=== PATIENT | female | born 1940 | race African-American/Black ===

== ENCOUNTER 2020-11-22 06:29 | Inpatient (IN) | payer MEDICARE, OTHER ==
[2020-11-22] VITALS (9 sets, daily range): BP systolic 91–133; BP diastolic 49–65
[~2020-11-22] VITALS: Ht 157.5 cm; Wt 64.6 kg
[~2020-11-22 06:29] MED LIST: LOSA100T33 PO; MELO1TAB56 PO; TRAM50TA2 PO
[2020-11-22] MEDS ORDERED: TRANEXAMIC ACID 20 ML ONE (07:06)
[2020-11-22] MEDS ORDERED: BUPIVACAINE 0.25% INJ 50ML VIAL ONE (07:07)
[2020-11-22] MEDS ORDERED: TETRACAINE 1% INJ 2 ML VIAL IJ ONE (07:07)
[2020-11-22] MEDS ORDERED: KETOROLAC TROMETH 30 MG/ML 1ML VIAL ONE (07:09)
[2020-11-22] MEDS ORDERED: MORPHINE SULF(PF) 0.5MG/ML 10ML VIAL ONE (07:09)
[2020-11-22] MEDS ORDERED: VANCOMYCIN HCL 1000 MG VL ONE ×2 (07:13→07:15)
[2020-11-22] MEDS ORDERED: PROPOFOL 10 MG/ML 20 ML IV ONE (07:14)
[2020-11-22] MEDS ORDERED: ONDANSETRON HCL 4 MG/2 ML VIAL ONE (07:14)
[2020-11-22] MEDS ORDERED: fentaNYL CITRATE 100 MCG/2 ML VL ONE (07:14)
[2020-11-22] MEDS ORDERED: MIDAZOLAM HCL 1MG/1ML-2 ML VIAL ONE (07:14)
[2020-11-22] MEDS ORDERED: GLYCOPYRROLATE 0.2 MG/ML 1ML VIAL ONE (07:14)
[2020-11-22] MEDS ORDERED: LIDOCAINE 2% (LOCAL ANESTH.) PF 5ml SDV ONE (07:14)
[2020-11-22] MEDS ORDERED: ePHEDrine SULFATE 50 MG/ML AMP ONE (07:14)
[2020-11-22] MEDS ORDERED: ACETAMINOPHEN IV 100 ML IV ONE (07:15)
[2020-11-22] MEDS ORDERED: PREGABALIN CAPSULE 75 MG CAP ONE (07:16)
[2020-11-22] MEDS ORDERED: CELECOXIB 100 MG CAP ONE (07:16)
[2020-11-22] MEDS ORDERED: GENTAMICIN SULF 80 MG/2 ML VIAL ONE (07:17)
[2020-11-22] MEDS ORDERED: BUPIVACAINE 0.5% P/F INJ 10 ML VIAL ONE (07:17)
[2020-11-22] MEDS ORDERED: KETAMINE HCL 10 ML ONE (08:03)
[2020-11-22] MEDS ORDERED: VANCOMYCIN 1GM/250ML 250 ML IV ONE (09:00)
[2020-11-22] MEDS ORDERED: CELECOXIB 100 MG CAP PO ONE (09:00)
[2020-11-22] MEDS ORDERED: PREGABALIN CAPSULE 75 MG CAP PO ONE (09:00)
[2020-11-22] MEDS ORDERED: ACETAMINOPHEN IV 1000 MG/100ML (10MG/ML) IV ONE (09:00)
[2020-11-22] MEDS ORDERED: DexAMETHasone SOD PHOS 10MG/1ML VIAL INJ IV PRN (09:15)
[2020-11-22] MEDS ORDERED: NALBUPHINE HCL 10 MG/1ml INJECTION SUBCUT ONE (09:15)
[2020-11-22] MEDS ORDERED: MORPHINE SULF INJ 2 MG/ML SYRINGE 1ML IV PRN (09:15)
[2020-11-22] MEDS ORDERED: traMADol HCL 50 MG TAB PO PRN (09:15)
[2020-11-22] MEDS ORDERED: NITROGLYCERIN 0.4 MG SL TAB SL PRN (09:15)
[2020-11-22] MEDS ORDERED: NALOXONE HCL 0.4 MG/ML VIAL IV PRN (09:15)
[2020-11-22] MEDS ORDERED: BISACODYL 5 MG EC TAB PO PRN (09:15)
[2020-11-22] MEDS: LACTATED RINGER'S 1,000 ML IV SCH ×2 (09:15→21:55)
[2020-11-22] MEDS ORDERED: ACETAMINOPHEN 325 MG TAB PO PRN (09:15)
[2020-11-22] MEDS ORDERED: ONDANSETRON HCL 4 MG/2 ML VIAL IV PRN ×3 (09:15)
[2020-11-22] MEDS: DOCUSATE SOD 100 MG CAP PO SCH ×2 (10:00→21:56)
[2020-11-22] MEDS: ENOXAPARIN SOD 40 MG/0.4 ML SYRINGE SC SCH (10:00)
[2020-11-22] MEDS ORDERED: VANCOMYCIN 1GM/250ML 250 ML IV SCH (10:00)
[2020-11-22] MEDS: PATIENTS OWN MEDICATION (Losartan Potassium & Hydrochlo (Losartan Potassium/Hydroc) 1 TAB) PO SCH (10:00)
[2020-11-22] MEDS: SODIUM CHLOR 0.9% PF (SALINE LOCK) 10ML VIAL/SYR IV SCH ×2 (14:00→21:56)
[2020-11-22] MEDS: VANCOMYCIN 1GM/250ML 250 ML IV SCH (21:56)
[2020-11-22] MEDS: HYDROcodone-ACET 5/325MG TAB PO PRN (21:57)
[2020-11-23] VITALS (12 sets, daily range): BP systolic 94–138; BP diastolic 43–81
[2020-11-23] MEDS: LACTATED RINGER'S 1,000 ML IV SCH ×2 (05:15→15:27)
[2020-11-23] MEDS: SODIUM CHLOR 0.9% PF (SALINE LOCK) 10ML VIAL/SYR IV SCH ×3 (05:23→21:29)
[2020-11-23 07:22] LABS: Basophils # (auto) 0 10 ^3/uL (0-0.2); Basophils % (auto) 0.1 % (0.0-2.0); Eosinophils # (auto) 0 10 ^3/uL (0-0.8); Eosinophils % (auto) 0.1 % (0.0-7.0); Hematocrit 26.5 % (36.0-46.0); Hemoglobin 9.3 g/dL (12.2-16.2); Lymphocytes # (auto) 0.4 10 ^3/uL (0.4-5.4); Lymphocytes % (auto) 9.7 % (10.0-50.0); Mean Corpuscular Hemoglobin 32.6 pg (28.0-32.0); Mean Corpuscular Volume 93.2 fL (80.0-100.0); Monocytes # (auto) 0.2 10 ^3/uL (0-1.3); Neutrophils # (auto) 3.3 10 ^3/uL (1.6-8.6); Neutrophils % (auto) 85.1 % (37.0-80.0); Nucleated Red Blood Cells % 0.1 %; Platelet Count (auto) 162 10^3/uL (140-450); Red Blood Cells 2.84 10^6/uL (4.0-5.20); Red Cell Distribution Width 13.2 % (11.8-14.3); White Blood Cell 3.8 10^3/uL (4.4-10.8)
[2020-11-23 07:32] LABS: Albumin 2.8 g/dL (3.4-5.0); Calcium 7.9 mg/dL (8.5-10.1); Magnesium 1.5 mg/dL (1.6-2.6); Potassium 3.8 mmol/L (3.5-5.1)
[2020-11-23 07:34] LABS: Bilirubin, Total 1.3 mg/dL (0.2-1.0); Total Protein 5.1 g/dL (6.4-8.2)
[2020-11-23] MEDS: MAGNESIUM SULFATE 1GM/100ML 100 ML IV SCH ×3 (09:41→11:05)
[2020-11-23] MEDS: DOCUSATE SOD 100 MG CAP PO SCH ×2 (09:43→21:29)
[2020-11-23] MEDS: VANCOMYCIN 1GM/250ML 250 ML IV SCH (09:44)
[2020-11-23] MEDS: PATIENTS OWN MEDICATION (Losartan Potassium & Hydrochlo (Losartan Potassium/Hydroc) 1 TAB) PO SCH (10:00)
[2020-11-23] MEDS: ENOXAPARIN SOD 40 MG/0.4 ML SYRINGE SC SCH (11:05)
[2020-11-23] MEDS: HYDROcodone-ACET 5/325MG TAB PO PRN ×3 (11:06→23:55)
[2020-11-23] MEDS ORDERED: METOCLOPRAMIDE HCL 5MG/ml INJ 2ml VIAL IV PRN (12:30)
[2020-11-24] VITALS (17 sets, daily range): BP systolic 90–127; BP diastolic 43–54
[2020-11-24] MEDS: LACTATED RINGER'S 1,000 ML IV SCH ×3 (01:15→21:16)
[2020-11-24] MEDS: HYDROmorphone HCL 2 MG/ML VL IV PRN ×2 (02:22→19:53)
[2020-11-24] MEDS: SODIUM CHLOR 0.9% PF (SALINE LOCK) 10ML VIAL/SYR IV SCH ×3 (05:34→21:16)
[2020-11-24 07:14] LABS: Hemoglobin 7.4 g/dL (12.2-16.2)
[2020-11-24 07:18] LABS: Hematocrit 21.7 % (36.0-46.0)
[2020-11-24] MEDS: LOSARTAN POTASSIUM 50 MG TAB PO SCH (09:13)
[2020-11-24] MEDS: DOCUSATE SOD 100 MG CAP PO SCH ×2 (09:13→21:16)
[2020-11-24] MEDS: HCTZ 25 MG TAB PO SCH (09:14)
[2020-11-24] MEDS: HYDROcodone-ACET 5/325MG TAB PO PRN ×3 (09:14→21:41)
[2020-11-24] MEDS: ENOXAPARIN SOD 40 MG/0.4 ML SYRINGE SC SCH (09:14)
[2020-11-25] MEDS: HYDROcodone-ACET 5/325MG TAB PO PRN ×3 (02:01→13:03)
[2020-11-25 05:00] VITALS: BP 109/40
[2020-11-25] MEDS: HYDROmorphone HCL 2 MG/ML VL IV PRN (05:31)
[2020-11-25] MEDS: SODIUM CHLOR 0.9% PF (SALINE LOCK) 10ML VIAL/SYR IV SCH ×2 (05:31→15:09)
[2020-11-25] MEDS: LACTATED RINGER'S 1,000 ML IV SCH ×2 (07:15→17:15)
[2020-11-25 07:21] LABS: Hematocrit 26.3 % (36.0-46.0); Hemoglobin 9.1 g/dL (12.2-16.2)
[2020-11-25] MEDS ORDERED: ALBUTEROL SULF 2.5 MG/0.5ML(0.5%) NEB SOLN NEB PRN (07:45)
[2020-11-25 07:49] LABS: Albumin 2.2 g/dL (3.4-5.0); Calcium 7.7 mg/dL (8.5-10.1); Magnesium 2.4 mg/dL (1.6-2.6); Potassium 3.3 mmol/L (3.5-5.1)
[2020-11-25 07:56] LABS: BUN/Creatinine Ratio 31.6; Bilirubin, Total 1.3 mg/dL (0.2-1.0); Phosphorus 2.6 mg/dL (2.5-4.90); Total Protein 4.9 g/dL (6.4-8.2)
[2020-11-25] MEDS: Ensure HIGH Protein Chocolate 8oz Bottle PO SCH ×2 (08:00→12:24)
[2020-11-25] MEDS: HCTZ 25 MG TAB PO SCH (09:07)
[2020-11-25] MEDS: DOCUSATE SOD 100 MG CAP PO SCH (09:07)
[2020-11-25] MEDS: LOSARTAN POTASSIUM 50 MG TAB PO SCH (09:08)
[2020-11-25] MEDS: ENOXAPARIN SOD 40 MG/0.4 ML SYRINGE SC SCH (09:08)
[2020-11-25] MEDS ORDERED: AZITHROMYCIN 500MG/ 250ML 250 ML IV SCH (10:00)
[2020-11-25 13:00] VITALS: BP 107/49
[2020-11-25 16:33] VITALS: BP 136/68
[2020-11-25 17:00] VITALS: BP 134/69
== END 2020-11-25 17:45 | disposition home health service (06) | DRG 470 ==
LOC: SUR 06:29 → TELE 09:05 → TELE-WESTW 15:55
PROVIDERS: ADMIT Orthopaedic Surgery Adult Reconstructive Orthopaedic Surgery; ATTEND Orthopaedic Surgery Adult Reconstructive Orthopaedic Surgery
PROC: 0SRB0JZ Replacement of Left Hip Joint with Synthetic Substitute, Open Approach (ICD-10-PCS; principal; 2020-11-22 07:27)
PROC: 30233N1 Transfusion of Nonautologous Red Blood Cells into Peripheral Vein, Percutaneous Approach (ICD-10-PCS; 2020-11-24)
DX: M16.12 Unilateral primary osteoarthritis, left hip (principal); M86.8X6 Other osteomyelitis, lower leg; E03.9 Hypothyroidism, unspecified; I10 Essential (primary) hypertension; Q65.89 Other specified congenital deformities of hip; Z20.822 Contact with and (suspected) exposure to COVID-19; D64.9 Anemia, unspecified
CPT/HCPCS: 36415; 71045; 72170; 73501; 80053; 83735; 83880; 84100; 85014; 85018; 85025; 86850; 86900; 86901; 86920; 87426; 97116; 97530; C1713; C1776; G0378; J0131; J1885; J2001; J2250; J2405; J2704; J3490

== ENCOUNTER 2023-05-29 07:11 | Emergency (ER) | payer MEDICARE, OTHER ==
[~2023-05-29] VITALS: Ht 157.5 cm; Wt 63.7 kg
[~2023-05-29 07:11] MED LIST changes: +MELO-335 PO; -MELO1TAB56 PO
[2023-05-29 07:19] VITALS: BP 180/73; PULSE 85; RESP 20; O2SAT 100
== END 2023-05-29 10:01 | disposition left against medical advice (07) ==
LOC: ER 07:11
DX: M25.512 Pain in left shoulder (principal); Z53.21 Procedure and treatment not carried out due to patient leaving prior to being seen by health care provider; W18.39XA Other fall on same level, initial encounter; Y93.89 Activity, other specified; Y92.89 Other specified places as the place of occurrence of the external cause; Y99.8 Other external cause status